=== PATIENT | male | born 1980 | race Caucasian/White ===

== ENCOUNTER 2017-04-10 09:52 | Emergency (ER) | payer BC ==
[~2017-04-10] VITALS: Ht 165.1 cm; Wt 66.7 kg
[2017-04-10 10:08] VITALS: BP 123/69
[2017-04-10] MEDS ORDERED: IBUPROFEN 600 MG TABLET PO ONE ×2 (10:30→10:41)
== END 2017-04-10 11:45 | disposition home or self-care (01) ==
LOC: ER 09:53
DX: S89.92XA Unspecified injury of left lower leg, initial encounter (principal); Z88.8 Allergy status to other drugs, medicaments and biological substances; X58.XXXA Exposure to other specified factors, initial encounter; Y93.66 Activity, soccer; Y92.89 Other specified places as the place of occurrence of the external cause; Y99.8 Other external cause status
CPT/HCPCS: 29505; 73564; 99284; A4606; Z7610